=== PATIENT | female | born 1980 | race Caucasian/White ===

== ENCOUNTER 2019-03-11 18:48 | Observation (INO) ==
[2019-03-11] MEDS ORDERED: ASPIRIN PO ONE (19:04)
[2019-03-11 19:36] LABS: BASO# 0.02 X1000 (0.0-0.2); BASO% 0.2 % (0.0-0.8); EOS# 0.26 X1000 (0.0-0.7); EOS% 2.7 % (0.0-10.0); HEMATOCRIT 42.5 % (37.0-47.0); HEMOGLOBIN 14.7 g/dL (12.0-16.0); IMM GRAN# 0.03 X1000 (0.0-0.04); IMM GRAN% 0.3 % (0.0-0.5); LYMPH# 2.37 X1000 (1.2-3.4); LYMPH% 24.7 % (20.5-51.1); MCH 29.3 PG (27-31); MCHC 34.6 g/dL (33-37); MCV 84.7 FL (81-99); MONO# 0.68 X1000 (0.11-0.59); MONO% 7.1 % (1.7-9.3); MPV 10.9 FL (7.4-10.4); NEUT# 6.22 X1000 (1.4-6.5); PLT 231 X1000 (130-400); RBC 5.02 XMIL (4.2-5.4); RDW 14.3 % (11.5-14.5); WBC 9.58 X1000 (4.8-10.8)
[2019-03-11 19:47] LABS: INR 0.94; PROTIME 13.1 Seconds (11.0-16.0)
--- NOTE | 2019-03-11 19:51 | Diag Imaging Result Doc PS360 ---
EXAM: CHEST-2 VIEWS INDICATION: chest pain TECHNIQUE: 2 views COMPARISON: None. FINDINGS: The lungs are grossly clear. There is no discrete pleural fluid collection or pneumothorax. The cardiomediastinal silhouette and central vasculature are grossly unremarkable. IMPRESSION: No evidence of acute pathology by plain radiograph. Electronically signed by Gabriele Avila 03/11/2019 7:48 PM
--- NOTE | 2019-03-11 19:54 | EKG Report ---
Test Performed on : 03/11/2019 7:05:26 PM Test Reason : chest pain hx WPW Blood Pressure : / mmHG Vent. Rate : 099 BPM Atrial Rate : 099 BPM P-R Int : 132 ms QRS Dur : 084 ms QT Int : 348 ms P-R-T Axes : 039 011 010 degrees QTc Int : 446 ms Normal sinus rhythm. Cannot rule out Anterior infarct , age undetermined Abnormal ECG No previous ECGs available Unconfirmed Result
[2019-03-11 19:59] LABS: AGAP 10; ALBUMIN 4.1 g/dL (3.5-5.0); ALKALINE PHOSPHATASE 86 U/L (32-104); BUN 8 mg/dL (8-22); CALCIUM 8.5 mg/dL (8.8-10.2); CHLORIDE 104 mmol/L (98-107); COSMO 277; CREATININE 0.7 mg/dL (0.5-0.9); ESTIMATED GFR > 60; GLUCOSE 113 mg/dL (70-104); GOT 19 U/L (10-30); GPT 23 U/L (10-36); MAGNESIUM 2.1 mg/dL (1.5-2.7); POTASSIUM 4.1 mmol/L (3.5-5.1); SODIUM 139 mmol/L (136-145); TCO2 25 mmol/L (25-35); TOTAL PROTEIN 6.7 g/dL (6.3-8.3)
[2019-03-11 20:08] LABS: BILIRUBIN URINE NEGATIVE (NEGATIVE); BLOOD URINE NEGATIVE (NEGATIVE); GLUCOSE URINE NEGATIVE (NEGATIVE); KETONE URINE NEGATIVE (NEGATIVE); LEUKOCYTES URINE NEGATIVE (NEGATIVE); NITRITE URINE NEGATIVE (NEGATIVE); PROTEIN URINE NEGATIVE (NEGATIVE); UROBILINOGEN URINE NORMAL
[2019-03-11 20:09] LABS: CLARITY SL. CLOUDY (CLEAR); COLOR YELLOW
[2019-03-11 20:19] LABS: UR AMPHETAMINES QUAL NONE DETECTED (NONE DETECT); UR BARBITUATES QUAL NONE DETECTED (NONE DETECT); UR BENZODIAZEPIN QUAL NONE DETECTED (NONE DETECT); UR CANNABINOIDS QUAL NONE DETECTED (NONE DETECT); UR COCAINE QUAL NONE DETECTED (NONE DETECT); UR METHADONE QUAL NONE DETECTED (NONE DETECT); UR METHAMPHETAMINE QUAL NONE DETECTED (NONE DETECT); UR OPIATES QUAL NONE DETECTED (NONE DETECT); UR OXYCODONE QUAL NONE DETECTED (NONE DETECT); UR PCP QUAL NONE DETECTED (NONE DETECT); UR PROPOXYPHENE QUAL NONE DETECTED (NONE DETECT); UR TCA QUAL NONE DETECTED (NONE DETECT)
[2019-03-11 20:29] LABS: URINE BACTERIA 1+ /HFP; URINE CAST NONE SEEN /LPF; URINE CRYSTAL NONE SEEN /HPF; URINE EPITHELIAL CELLS >10 /HPF (<10); URINE SOURCE CLEAN CATCH; URINE YEAST NONE SEEN /HPF
[2019-03-11] MEDS ORDERED: NS 500 ML IV ONE (20:59)
[2019-03-11] MEDS ORDERED: NITROGLYCERIN SL ONE (20:59)
[2019-03-11] MEDS ORDERED: TYLENOL PO ONE (22:17)
--- NOTE | 2019-03-11 22:22 | PROVIDER DOCUMENTATION ---
This chart was entered by Adrianna Avila Scribe, acting as scribe for Gucci Johns MD. HPI-Chest Pain - General Chief Complaint: Chest Pain Stated Complaint: CHEST PAIN Time Seen by Provider: 03/11/19 19:07 Source: family Allergies/Adverse Reactions: Patient Allergies Allergy/AdvReac Type Severity Reaction Status Date / Time cefaclor [From Ceclor] AdvReac HIVES Verified 03/11/19 18:58 penicillin V AdvReac HIVES Verified 03/11/19 18:58 sulfamethoxazole AdvReac RASH Verified 03/11/19 18:58 [From Bactrim] trimethoprim [From Bactrim] AdvReac RASH Verified 03/11/19 18:58 - History of Present Illness-CP Nature of Presenting Problem: 38yowf present w/family to er w/cc family sts pt has had intermittent cp few days now, n/v. pt has hx of 2 heart ablasions. 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 Cardilogist at [facility]?name-hasn'e seen casino manager since last C Ablation. Reoports Hx WPW . Repors intermittent tachycardia past 1 month. CP max today 8/10- a squeezing sensation, pain now 2/10. family sts pt resting HR is in 100s. no diaphoresis. no dm. takes propanolol for htn and wellbutrin for anxiety. Review of Systems - Adult - REVIEW OF SYSTEMS - ADULT Constitutional: reports: no symptoms reported. denies: chills, fever Eyes: reports: no symptoms reported Ears, Nose, Mouth & Throat: reports: no symptoms reported Cardiovascular: reports: see HPI, chest pain. denies: poor circulation, PND, syncope Respiratory: reports: no symptoms reported Gastrointestinal: reports: see HPI, nausea, vomiting. denies: hematemesis, diarrhea, difficulty swallowing Genitourinary: reports: no symptoms reported Musculoskeletal: reports: no symptoms reported Integumentary: reports: no symptoms reported Neurological: reports: no symptoms reported Psychiatric: reports: no symptoms reported Endocrine: reports: no symptoms reported Hematologic/Lymphatic: reports: no symptoms reported Allergic/Immunologic: reports: no symptoms reported All Other Systems: Reviewed and Negative Past History - Adult - PAST MEDICAL HISTORY-ADULT Review of Records: reports: Old Records Reviewed, Nursing Assessment Review, Medications Reviewed, Social history reviewed & non-contributory. Major Childhood Illnesses: reports: denies history Cardiovascular: reports: HTN Respiratory: reports: denies history Gastrointestinal: reports: denies history Obstetrical/Gynecological: reports: denies history Genitourinary: reports: denies history Musculoskeletal: reports: denies history Neurological: reports: denies history Endocrine/Immune: reports: denies history Other Conditions: reports: other (wpw) - PRIOR SURGERIES/PROCEDURES Surgical/Procedure History: reports: other (ablasions x 2) - IMMUNIZATION STATUS Childhood Immunizations: See Nurse Assessment Flu Vaccine: See Nurse Assessment - FAMILY HISTORY Family History: reviewed, not pertinent - SOCIAL HISTORY Smoking: cigarettes, less than 1 pack/day Provider spent 3-5 mins advising pt. on dangers of tobacco.: Discussed manners to quit use, and f/u contacts for add'l counseling. Substance Use: none/never Physical Exam-General - PHYSICAL EXAM-ADULT Initial Vital Signs Reviewed: Yes (MILD TACHY) - CONSTITUTIONAL General Appearance: mild distress - EYES Eyes: PERRL/EOMI, pink conjunctivae - HEAD, EARS, NOSE, MOUTH & THROAT HENMT: normocephalic/atraumatic, moist mucous membranes - NECK Neck: non-tender, supple - RESPIRATORY Respiratory: chest non-tender, lungs clear, normal breath sounds - CARDIOVASCULAR Cardiovascular: normal peripheral pulses, regular rate, rhythm, no edema, no gallop, no JVD, no murmur - GASTROINTESTINAL (ABDOMEN) Abdominal Exam: non tender, soft - MUSCULOSKELETAL Extremity: normal range of motion, non-tender, normal gait - SKIN Integumentary: normal color, normal turgor, warm/dry - NEUROLOGIC Neurologic: patient intake coordinator II-XII nml as tested, grossly normal, no motor/sensory deficits - PSYCHIATRIC Psych/Mental Status: normal mood/affect, normal thought content, normal thought process, oriented x 3 - HEART Score HEART Score: History: Moderately Suspicious HEART Score: ECG: Normal HEART Score: Age: < or = 45 Years HEART Score: Risk Factors for Atherosclerotic Disease: 1 or 2 Risk Factors HEART Score: Troponin: < or = Normal Limit Total HEART Score:: 2 Progress - PLAN OF CARE/RESULTS Progress/Plan/Lab Results: Vital Signs - 8 hr 03/11/19 18:55 03/11/19 20:27 Temperature 98.2 F Pulse Rate 102 H 84 Respiratory Rate 18 17 Blood Pressure 157/89 130/65 O2 Sat by Pulse Oximetry 95 100 Laboratory Results - last 24 hr 03/11/19 03/11/19 03/11/19 19:25 19:25 19:25 WBC 9.58 RBC 5.02 Hgb 14.7 Hct 42.5 MCV 84.7 MCH 29.3 MCHC 34.6 RDW Std Deviation 14.3 Plt Count 231 MPV 10.9 H Immature Gran % (Auto) 0.3 Neut % (Auto) 65.0 Lymph % (Auto) 24.7 [place] % (Auto) 7.1 Eos % (Auto) 2.7 Baso % (Auto) 0.2 Immature Gran # (Auto) 0.03 Neut # (Auto) 6.22 Lymph # (Auto) 2.37 [place] # (Auto) 0.68 H Eos # (Auto) 0.26 Baso # (Auto) 0.02 PT INR D-Dimer, Quantitative Sodium Potassium Chloride Carbon Dioxide Anion Gap BUN Creatinine Estimated GFR/1.73 m2 BUN/Creatinine Ratio Glucose Calculated Osmolality Calcium Magnesium Total Bilirubin AST ALT Alkaline Phosphatase Creatine Kinase 62 Troponin T < 0.010 Odk-P-Dqjviziifcn Pept Total Protein Albumin Globulin Albumin/Globulin Ratio Urine Source Urine Color Urine Clarity Urine pH Ur Specific Crowley Urine Protein Urine Ketones Urine Blood Urine Nitrite Urine Bilirubin Urine Urobilinogen Urine Microscopic RBC Urine WBC Ur Epithelial Cells Urine Crystals Urine Bacteria Urine Casts Urine Yeast Urine Glucose Urine Opiates Screen Ur Oxycodone Screen Urine Methadone Screen U Propoxyphene Qual Ur Barbituates Screen Ur Tricyclics Screen Ur Phencyclidine Scrn Ur Amphetamines Screen U Methamphetamines Scrn U Benzodiazepines Scrn Urine Cocaine Screen U Cannabinoids Screen 03/11/19 03/11/19 03/11/19 19:25 19:25 19:25 WBC RBC Hgb Hct MCV MCH MCHC RDW Std Deviation Plt Count MPV Immature Gran % (Auto) Neut % (Auto) Lymph % (Auto) [place] % (Auto) Eos % (Auto) Baso % (Auto) Immature Gran # (Auto) Neut # (Auto) Lymph # (Auto) [place] # (Auto) Eos # (Auto) Baso # (Auto) PT INR D-Dimer, Quantitative 0.30 Sodium 139 Potassium 4.1 Chloride 104 Carbon Dioxide 25 Anion Gap 10 BUN 8 Creatinine 0.7 Estimated GFR/1.73 m2 > 60 BUN/Creatinine Ratio 11 Glucose 113 H Calculated Osmolality 277 Calcium 8.5 L Magnesium 2.1 Total Bilirubin 0.20 AST 19 ALT 23 Alkaline Phosphatase 86 Creatine Kinase Troponin T Gxd-P-Ejocbcsqqll Pept 12 Total Protein 6.7 Albumin 4.1 Globulin 3.0 Albumin/Globulin Ratio 2.0 Urine Source Urine Color Urine Clarity Urine pH Ur Specific [place] Urine Protein Urine Ketones Urine Blood Urine Nitrite Urine Bilirubin Urine Urobilinogen Urine Microscopic RBC Urine WBC Ur Epithelial Cells Urine Crystals Urine Bacteria Urine Casts Urine Yeast Urine Glucose Urine Opiates Screen Ur Oxycodone Screen Urine Methadone Screen U Propoxyphene Qual Ur Barbituates Screen Ur Tricyclics Screen Ur Phencyclidine Scrn Ur Amphetamines Screen U Methamphetamines Scrn U Benzodiazepines Scrn Urine Cocaine Screen U Cannabinoids Screen 03/11/19 03/11/19 03/11/19 19:25 19:51 19:51 WBC RBC Hgb Hct MCV MCH MCHC RDW Std Deviation Plt Count MPV Immature Gran % (Auto) Neut % (Auto) Lymph % (Auto) [place] % (Auto) Eos % (Auto) Baso % (Auto) Immature Gran # (Auto) Neut # (Auto) Lymph # (Auto) [place] # (Auto) Eos # (Auto) Baso # (Auto) PT 13.1 INR 0.94 D-Dimer, Quantitative Sodium Potassium Chloride Carbon Dioxide Anion Gap BUN Creatinine Estimated GFR/1.73 m2 BUN/Creatinine Ratio Glucose Calculated Osmolality Calcium Magnesium Total Bilirubin AST ALT Alkaline Phosphatase Creatine Kinase Troponin T Lzb-Q-Suutourqmbo Pept Total Protein Albumin Globulin Albumin/Globulin Ratio Urine Source CLEAN CATCH Urine Color YELLOW Urine Clarity SL. CLOUDY A Urine pH 7.0 Ur Specific Crow[place] 1.010 Urine Protein NEGATIVE Urine Ketones NEGATIVE Urine Blood NEGATIVE Urine Nitrite NEGATIVE Urine Bilirubin NEGATIVE Urine Urobilinogen NORMAL Urine Microscopic RBC Not Reportable Urine WBC NEGATIVE Ur Epithelial Cells >10 A Urine Crystals NONE SEEN Urine Bacteria 1+ Urine Casts NONE SEEN Urine Yeast NONE SEEN Urine Glucose NEGATIVE Urine Opiates Screen NONE DETECTED Ur Oxycodone Screen NONE DETECTED Urine Methadone Screen NONE DETECTED U Propoxyphene Qual NONE DETECTED Ur Barbituates Screen NONE DETECTED Ur Tricyclics Screen NONE DETECTED Ur Phencyclidine Scrn NONE DETECTED Ur Amphetamines Screen NONE DETECTED U Methamphetamines Scrn NONE DETECTED U Benzodiazepines Scrn NONE DETECTED Urine Cocaine Screen NONE DETECTED U Cannabinoids Screen NONE DETECTED 03/11/19 21:25 WBC RBC Hgb Hct MCV MCH MCHC RDW Std Deviation Plt Count MPV Immature Gran % (Auto) Neut % (Auto) Lymph % (Auto) [place] % (Auto) Eos % (Auto) Baso % (Auto) Immature Gran # (Auto) Neut # (Auto) Lymph # (Auto) [place] # (Auto) Eos # (Auto) Baso # (Auto) PT INR D-Dimer, Quantitative Sodium Potassium Chloride Carbon Dioxide Anion Gap BUN Creatinine Estimated GFR/1.73 m2 BUN/Creatinine Ratio Glucose Calculated Osmolality Calcium Magnesium Total Bilirubin AST ALT Alkaline Phosphatase Creatine Kinase Troponin T < 0.010 Hnk-K-Ynueqnzesuf Pept Total Protein Albumin Globulin Albumin/Globulin Ratio Urine Source Urine Color Urine Clarity Urine pH Ur Specific [place] Urine Protein Urine Ketones Urine Blood Urine Nitrite Urine Bilirubin Urine Urobilinogen Urine Microscopic RBC Urine WBC Ur Epithelial Cells Urine Crystals Urine Bacteria Urine Casts Urine Yeast Urine Glucose Urine Opiates Screen Ur Oxycodone Screen Urine Methadone Screen U Propoxyphene Qual Ur Barbituates Screen Ur Tricyclics Screen Ur Phencyclidine Scrn Ur Amphetamines Screen U Methamphetamines Scrn U Benzodiazepines Scrn Urine Cocaine Screen U Cannabinoids Screen Orders Category Date Time Status Cardiac Monitoring DIRECTED Care 03/11/19 19:04 Active If abnormal EKG, order: NOW Care 03/11/19 19:01 Active CHEST-2 VIEWS [RAD] Stat Exams 03/11/19 19:01 Completed CBC WITH DIFF [HEME] Stat Lab 03/11/19 19:25 Completed CK PROFILE [SP CHEM] Stat Lab 03/11/19 19:25 Completed COMPREHENSIVE METABOLIC PANEL [CHEM] Stat Lab 03/11/19 19:25 Completed D-DIMER [COAG] Stat Lab 03/11/19 19:25 Completed MAGNESIUM [CHEM] Stat Lab 03/11/19 19:25 Completed PRO B-NATRIURETIC PEPTIDE Stat Lab 03/11/19 19:25 Completed PROTIME WITH INR [COAG] Stat Lab 03/11/19 19:25 Completed TROPONIN T Stat Lab 03/11/19 19:25 Completed TROPONIN T Stat Lab 03/11/19 21:[address] W/POSS RFLX CULT [URINALYSIS] Stat Lab 03/11/19 19:51 Com[address]INE DRUG SCREEN PL Stat Lab 03/11/19 19:51 Completed 0.9% Sodium Chloride Inj [Ns] 500 ml Med 03/11/19 20:59 Discontinued IV 999 mls/hr Aspirin Med 03/11/19 19:04 Discontinued 325 mg PO NOW ONE Nitroglycerin Sl [Nitroglycerin] Med 03/11/19 20:59 Discontinued 0.4 mg SL NOW ONE CP/Palp <45 No Known Cardiac Hx Stat Oth 03/11/19 19:01 Ordered EKG [EKG] Stat Ther 03/11/19 19:01 Draft Result Diagrams: 03/11/19 19:25 03/11/19 19:25 - REASSESSMENT Reassessment #1 Time Reassessed: 20:35 Status: improving (pain 2/10, reports past WPW. EKG now shown no shortening of CT interval and no deltal wave, shows NRS st 80/min.) Reassessment #2 Time Reassessed: 22:11 Status: improving (CP RESOLVED AFTER NITROGLYCERINE. DISCUSSED ADMISSION WITH DR MEEK.) - EKG 1 Time of EKG reading by physician:: 19:14 EKG Read and Signed by:: Gucci Johns EKG Interpretation (*Must complete 3 of following elements*): Abnormal Rate: 99 (cannot rule out anterior infarct, age undetermined) Rhythm: NSR [place]: normal QRS: normal CT Interval: normal ST Wave: normal - CONSULTS/PCP/HOSPITALIST Notification #1 *Consult/PCP/Hospitalist*: DR MEEK Time Discussed: 22:17 Consult Disposition: Admit Departure - Departure Date of Disposition Decision: 03/11/19 Time of Disposition Decision: 22:18 DIAGNOSIS: Chest pain, History of Jqxft-Xwzgdzkag-Izuwb (WPW) syndrome Disposition: ADMITTED INPATIENT 09 Certified Medical Emergency: Emergent Condition: Stable Referrals and Follow-Ups: None,PCP [Primary Care Provider] - - Critical Care Note This patient required my direct & personal management of CC.: No Attestation - Physician/ CHRISTINA Attestation Patient care was provided by Advanced Practice Provider:: No The physician spent face to face time with patient:: Yes Advanced Practice Provider documentation review:: Supervising physician onsite and consulted in the evaluation and care of this patient. The physician did have a face to face encounter with the patient. This chart was documented by the indicated scribe, (Avila,Adrianna E., Scribe) and accurately reflects the services I performed and decisions made by me, Gucci Johns MD, as attested by the provider's signature.
[2019-03-11] MEDS ORDERED: TYLENOL PO PRN (23:41)
[2019-03-12 07:33] VITALS: BP 136/81
--- NOTE | 2019-03-13 01:03 | HISTORY AND PHYSICAL ---
CHIEF COMPLAINT: Chest pain. HISTORY OF PRESENT ILLNESS: The patient is a 38-year-old female who presented to the hospital with intermittent chest pain for the past few days. Complained of nausea. Does have a history of cardiac ablation x2 although she has not followed up with advertising statistical clerk since then. She did have a stress test in February which she reports as normal. She stated initially that pain was 8/10, squeezing in sensation. Heart rate was elevated. She denied any diaphoresis. Typically takes propranolol for hypertension and tachycardia and Wellbutrin for her chronic anxiety. ALLERGIES: Ceclor causing hives. Penicillin, hives. Bactrim, rash. REVIEW OF SYSTEMS: As noted above. Otherwise denies any fevers, chills, cough, congestion. Denies any other upper respiratory type symptoms. Denies dysuria, urinary frequency. Denies constipation, melena, hematochezia. Denies weight loss, weight gain, skin rashes, headaches, blurred vision, or focalized weakness. PAST MEDICAL HISTORY: Hypertension, history of WPW, status post cardiac ablation, chronic depression, anxiety. FAMILY HISTORY: Noncontributory. SOCIAL HISTORY: The patient continues to smoke a pack a day. Does not drink or use other illicit substances. Primary care is [facility]. PHYSICAL EXAMINATION: VITAL SIGNS: Reviewed. Temperature 98 degrees, pulse 102 initially, currently 84, respiratory 17, BP 157 initially, currently 130/65, saturating 100% on room air. GENERAL: Patient is awake, alert. She is in no current respiratory distress. She is standing in the hallway upon my exam stating that she is going home. HEENT: Normocephalic. NECK: Supple. CARDIOVASCULAR: Regular rate. CHEST: Clear and nonlabored. ABDOMEN: Soft, nondistended. EXTREMITIES: Moves all extremities. ASSESSMENT: 1. Chest pain, likely noncardiac. 2. Chronic anxiety. 3. Hypertension. PLAN: The patient was admitted to the hospital overnight. She has had 2 sets of negative enzymes. She is currently refusing to allow a 3rd set to be drawn stating that she is going home. As her symptoms have resolved, first 2 sets of cardiac enzymes were negative, she had a stress test last year, we will discharge her home. cc: Davis Meek MD
--- NOTE | 2019-03-13 10:22 | DISCHARGE SUMMARY ---
ADMISSION DATE: 03/11/2019 DISCHARGE DATE: 03/12/2019 DISCHARGE DIAGNOSES: 1. Chest pain, likely noncardiac. 2. Chronic anxiety. 3. Hypertension. 4. Obesity. 5. History of Xhxgn-Rnkmgsmwj-Kvphn. CONSULTATIONS: None. PROCEDURES: None. BRIEF HOSPITAL COURSE: The patient is a 38-year-old female who presented to the hospital, was treated in the usual fashion. She was placed on rule out [place] protocol. She had 2 sets of cardiac enzymes, which were negative. The patient is refusing the third set. Regardless, she had a stress test last year that was negative per the patient. DISPOSITION: The patient will be discharged home. We did discuss with her, although briefly because she was, in affect, standing in the doorway, and in actuality was walking down the [place], and I was able to encourage her to go back to the doorway so we could talk. Did discuss with her that she needs to follow up with her primary care, certainly should consider Holter monitor to follow her heart rates, should stop smoking, should try to exercise, attempt better healthy heart diet. cc: Davis Meek MD
== END 2019-03-12 10:39 | disposition home or self-care (01) ==
LOC: P.ED 18:48 → P.MEDSURG 23:12 → INTOOBSV 23:12 → P.MEDSURG 23:36
PROVIDERS: ATTEND Family Medicine
CPT/HCPCS: 71020; 71046; 80053; 80101; 80104; 80301; 80305; 80307; 80324; 80345; 80346; 80353; 80358; 80361; 80365; 81001; 82550; 83735; 83880; 83992; 84484; 85025; 85379; 85610; 93005; 94761; A9270; G0431; G0434; G0477; G0479; G0480; J7040